=== PATIENT | female | born 1995 | race Two or more races ===

== ENCOUNTER 2023-12-28 13:57 | Emergency (ER) | payer BC, OTHER ==
[~2023-12-28] VITALS: Ht 170.2 cm; Wt 75.0 kg
[2023-12-28 13:58] VITALS: O2SAT 100
[2023-12-28] MEDS ORDERED: CEFAZOLIN 1000MG PREMIX 50 ML IV ONE ×2 (14:15)
[2023-12-28] MEDS: CEFAZOLIN 2GM/100ML 100 ML IV NR (14:36)
[2023-12-28] MEDS: TETANUS, DIPHTHERIA, PERTUSSIS VAC/PF 0.5ML (>10YR OLD) IM ONE (14:39)
[2023-12-28] MEDS: MORPHINE SULFATE 4 MG/ML INJ (FOR IV/IM USE) IV ONE (15:31)
[2023-12-28 16:58] LABS: CHLORIDE 107 mEq/L (98-107); POTASSIUM 3.5 mEq/L (3.5-5.1); SODIUM 137 mEq/L (136-145)
[2023-12-28 16:59] LABS: CALCIUM 10.2 mg/dL (8.7-10.4); CARBON DIOXIDE 18 mEq/L (21-32)
[2023-12-28 17:01] LABS: BASOPHILS % 0.2 % (0.0-2.0); EOSINOPHILS % 0.1 % (0.0-5.0); HEMATOCRIT. 43.7 % (36.0-48.0); HEMOGLOBIN. 14.6 g/dL (12.0-16.0); LYMPHOCYTES % 14.6 % (20.0-50.0); MEAN CORPUSCULAR HEMOGLOBIN 32.4 pg (28.0-32.0); MEAN CORPUSCULAR HGB CONC 33.3 g/dL (31.0-37.0); MEAN CORPUSCULAR VOLUME 97.2 fL (81.0-99.0); MEAN PLATELET VOLUME 8.4 fl (7.4-10.4); MONOCYTES % 3.2 % (2.0-8.0); NEUTROPHILS % 81.9 % (40.0-76.0); PLATELET 293 x1000/uL (130-400); RED CELL DISTRIBUTION WIDTH 13.2 % (11.6-14.6); WHITE BLOOD COUNT 10.3 x1000/uL (4.5-11.0)
[2023-12-28 17:04] LABS: CREATININE 0.8 mg/dL (0.6-1.0); GLUCOSE 87 mg/dL (70-105); UREA NITROGEN BLOOD 7 mg/dL (9-23)
[2023-12-28 17:06] LABS: ALANINE AMINOTRANSFERASE 33 IU/L (10-49); ALBUMIN 5.1 g/dL (3.2-4.8); ASPARTATE AMINOTRANSFERASE 56 IU/L (<34); BILIRUBIN TOTAL 0.7 mg/dL (0.1-1.0); PROTEIN TOTAL 8.2 g/dL (6.0-8.3)
[2023-12-28] MEDS ORDERED: KETO10TA2 MT (18:51)
[2023-12-28] MEDS ORDERED: AMOX1TAB16 MT (18:51)
[2023-12-28 19:28] VITALS: BP 125/67; PULSE 90; RESP 14; TEMP 98.1
[2023-12-28] MEDS: OXYCODONE HCL/ACETAMINOPHEN 5/325MG TABLET PO ONE (19:39)
== END 2023-12-28 19:30 | disposition home or self-care (01) ==
LOC: ER 14:18 → CANBEDREQ 19:12 → ER 19:30
DX: S92.142A Displaced dome fracture of left talus, initial encounter for closed fracture (principal); S91.012A Laceration without foreign body, left ankle, initial encounter; X58.XXXA Exposure to other specified factors, initial encounter; Y93.89 Activity, other specified; Y92.89 Other specified places as the place of occurrence of the external cause; Y99.8 Other external cause status
CPT/HCPCS: 80053; 85025; 86850; 86900; 86901; 87040; 36415; 73610; 73700; 90715; 90471; 96365; 96375; 99285; J0690; J2270; Z7610 ×3